=== PATIENT | male | born 1945 | race Caucasian/White ===

== ENCOUNTER 2021-01-01 21:07 | Emergency (ER) | payer MEDICARE, SELFPAY ==
[2021-01-01 21:11] VITALS: BP 132/80; PULSE 93; RESP 18; TEMP 36.4; O2SAT 96; BMI 32.2
--- NOTE | 2021-01-01 21:32 | W.ED.EYEPROB ---
HPI - Eye Problem General: Chief complaint: Eye Problems Stated complaint: Something in Lt eye Time Seen by Provider: 01/01/21 21:16 History of Present Illness: HPI Narrative: This patient presents to the emergency department because of an injury to his left eye. He apparently was walking back from being out hunting and walked into a branch. He retreated a bit to get the branch out of his face and it snapped back on his left eye. He states he has not appreciated any significant difference in his usual vision. He states that there is a small flap or foreign body or something in his left eye that he is aware of. He denies any other injury at this time. He does wear corrective lenses for reading but otherwise no other significant eye history. MD chief complaint: eye pain, eye redness and eye injury Associated symptoms: Denies fever(s), headache(s), nausea, neck pain or vomiting Review of Systems Const: Denies: fever(s) or chills Eyes: Reports: blurry vision, eye discomfort and eye redness; Denies: change in vision ENMT: Denies: throat pain or mouth pain Card: Denies: chest pain or palpitations Resp: Denies: dyspnea or productive cough GI: Denies: abdominal pain, nausea or vomiting : Denies: flank pain or difficulty urinating Musc: Reports: joint pain; Denies: neck pain or back pain Skin/Breast: Denies: rash or pruritus Neuro: Denies: headache(s) or numbness in extremities Psych: Denies: anxiety or depression Physical Exam Const: COMMON NORMALS: no acute distress, patient oriented x3 and healthy appearing Eye: COMMON NORMALS: Equal, round and reactive pupils present and fundi normal bilaterally VISUAL ACUITY: Yes visual acuity right eye Visual acuity (R) = 20/: 40 and Yes visual acuity left eye Visual acuity (L) = 20/: 50 SCLERA: scleral abnormal Laterality of scleral abnormality: positive left (Superficial injury to the left lower temporal sclera at approximately 5 o'clock position) scleral injection PUPIL: Yes Equal, round and reactive pupils present and Yes Pupil accommodation reflex normal DIRECT OPHTHALMOSCOPY: Yes fundi normal bilaterally SLIT LAMP EXAM: Yes slit lamp exam performed with fluorescein OTHER: Slit-lamp was used to visualize the left eye and globe. Fluorescein was also used to examine the eye. There is no evidence of fluorescein uptake no streaming of fluorescein indicative of a possible globe injury. He does have the flap of conjunctival tissue noted at the 5 o'clock position extending out from the limbus of the cornea that is a free free flap with a wide base. No evidence of deeper injury at this time. No other foreign bodies noted on lid eversion. EYE IMAGES: 1. 2. 3. Area of injury Neck/C-Spine: COMMON NORMALS: full ROM and no lymphadenopathy Resp: COMMON NORMALS: normal respiratory effort Cardio: COMMON NORMALS: Peripheral pulses 2+ throughout PERIPHERAL PULSES: Peripheral pulses 2+ throughout Back/Pelvis: COMMON NORMALS: thoraco-lumbar ROM normal Extremity: COMMON NORMALS: normal to inspection and full ROM Neuro: COMMON NORMALS: patient oriented x3, moves all extremities, no focal motor deficits and no sensory deficits noted Skin: COMMON NORMALS: no rashes or lesions noted and no wounds GENERAL SKIN EXAM: no rashes or lesions noted Course Reevaluation(s): Reevaluation #1: I discussed expected course with the patient and the plan for antibiotic ointment this evening as well as a ophthalmology follow-up first thing in the morning with Dr. Wiggins. He acknowledged her discussion. He is stable at this time to be discharged with close follow-up. Consultations: Consultation #1: I just discussed with the PA from the [facility] regarding the patient's injury and arranging 24 follow-up. They agreed to see the patient in the morning in the clinic. Fausto cover him with erythromycin ointment overnight until they are able to see the patient. Vital Signs: Vital signs: Vital Signs Temperature 97.6 F 01/01/21 21:11 Pulse Rate 93 01/01/21 21:11 Respiratory Rate 18 01/01/21 21:11 Blood Pressure 132/80 01/01/21 21:11 Pulse Oximetry 96 01/01/21 21:11 Discharge Plan Discharge Patient Disposition: Home Clinical Impression: Injury of conjunctiva Qualifiers: Encounter type: initial encounter Laterality: left Qualified Code(s): S05.02XA - Injury of conjunctiva and corneal abrasion without foreign body, left eye, initial encounter Condition: Stable Prescriptions: No Action No Known Home Medications RF: 0 Discharge Orders: Discharge ED (Routine); Ordered 01/01/21 Ordered By: Reynaldo Morales Referrals: Rubin Wiggins MD [Physician] - None (Conjunctival injury as discussed with Kimberlyn Borja) Discharge Diet: Usual diet Discharge Activity: Resume usual activity Patient Instructions: Opioid Safety Activity Restrictions/Additional Instructions: Use the antibiotic ointment tonight as recommended every [address] Wiggins's clinic first thing in the morning at [phone] to be seen on Saturday. 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
[2021-01-01] MEDS: fluorescein 1 mg Strip EYE-LEFT (21:57)
[2021-01-01] MEDS: tetracaine 0.5% Op Soln 4 mL Btl 1 DROP EYE-LEFT (21:57)
[2021-01-01] MEDS: erythromycin Op Oint 1 gm 1 APPLIC EYE-LEFT (22:29)
== END 2021-01-01 22:25 | disposition home or self-care (01) ==
PROVIDERS: Emergency Provider Emergency Medicine
DX: S05.02XA Injury of conjunctiva and corneal abrasion without foreign body, left eye, initial encounter (principal); W20.8XXA Other cause of strike by thrown, projected or falling object, initial encounter
CPT/HCPCS: 99283